=== PATIENT | male | born 1980 | race Two or more races ===

== ENCOUNTER 2021-02-05 11:51 | Emergency (ER) | payer OTHER ==
[~2021-02-05] VITALS: Ht 167.6 cm; Wt 87.7 kg
--- NOTE | 2021-02-05 13:06 | NUR ---
health actuary note: Pt to room from lobby.
--- NOTE | 2021-02-05 14:09 | NUR ---
CT ON HOLD; CODE NEURO FOR ONE ROOM, ANOTHER ER PT IN THE OTHER ROOM
--- NOTE | 2021-02-05 14:32 | NUR ---
Pt to imaging.
--- NOTE | 2021-02-05 14:36 | NUR ---
Pt back from imaging and ambulatory to bathroom with steady gait.
[2021-02-05 15:56] VITALS: BP 117/62
== END 2021-02-05 15:59 | disposition home or self-care (01) ==
LOC: ED 15:45
DX: S16.1XXA Strain of muscle, fascia and tendon at neck level, initial encounter (principal); G44.211 Episodic tension-type headache, intractable; X58.XXXA Exposure to other specified factors, initial encounter; Y93.89 Activity, other specified; Y92.89 Other specified places as the place of occurrence of the external cause; Y99.8 Other external cause status
CPT/HCPCS: 70450; 72125; 99285